=== PATIENT | female | born 1965 | race Caucasian/White ===

== ENCOUNTER 2016-05-11 18:55 | Emergency (ER) | payer OTHER ==
[~2016-05-11] VITALS: Ht 152.4 cm; Wt 79.0 kg
[2016-05-11 19:37] VITALS: Ht 152.4 cm; Wt 79.0 kg
--- NOTE | 2016-05-11 22:30 | ERA ---
ER Documentation Chief Complaint Date/Time DATE: 05/11/16 TIME: 22:30 Chief Complaint Left Facial pain and headache since yesterday. Frozen shoulder HPI The patient is a 50-year-old female, presenting to the ER because of left-sided headache, left facial pain, left upper extremity pain with movement for 1 day. She denies similar symptoms previously. She is unable to raise her left hand above her head because of the pain. She denies neck pain, chest pain, dyspnea, abdominal pain, vomiting, dysuria, diarrhea, constipation. She denies smoking or drinking Past medical history: Hypertension Past surgical history: None ROS All systems reviewed and are negative except as per history of present illness. Medications Home Meds Active Scripts Hydrocodone/Acetaminophen ([place] 10-325 Tablet) 1 Each Tablet, 1 TAB PO Q6H Y for PAIN, #7 TAB Prov:CESAR JAMISON MD 05/12/16 Ibuprofen* (Motrin*) 600 Mg Tab, 600 MG PO Q6H Y for PAIN AND OR ELEVATED TEMP, #30 TAB Prov:CESAR JAMISON MD 05/12/16 Allergies Allergies: Coded Allergies: No Known Drug Allergies (Verified Allergy, Unknown, 02/02/14) PMhx/Soc Hx Alcohol Use: No Hx Substance Use: No Hx Tobacco Use: No Physical Exam Vitals Vital Signs Date Time Temp Pulse Resp B/P Pulse Ox O2 Delivery O2 Flow Rate FiO2 05/12/16 01:41 70 19 197/82 100 Room Air 05/11/16 23:15 65 16 178/85 96 Room Air 05/11/16 19:37 98.9 74 18 227/98 98 Physical Exam Const: No acute distress. Head: Atraumatic. Eyes: Normal Conjunctiva. ENT: Normal External Ears, Nose and Mouth. Neck: Full range of motion. No meningismus. Resp: Clear to auscultation bilaterally. Cardio: Regular rate and rhythm, no murmurs. Abd: Soft, non distended, normal bowel sounds, non tender. Skin: No petechiae or rashes. Back: No midline or flank tenderness. Ext: No cyanosis, or edema. Vague and moderate left upper extremity tenderness, no crepitus, not warm to touch Neur: Awake and alert. No focal deficit Psych: Normal Mood and Affect. Result Diagram: 05/11/16 2302 05/11/16 2302 Results 24 hrs Laboratory Tests Test 05/11/16 23:02 White Blood Count 7.910^3/ul Red Blood Count 3.9510^6/ul Hemoglobin 11.5g/dl Hematocrit 35.9% Mean Corpuscular Volume 90.9fl Mean Corpuscular Hemoglobin 29.1pg Mean Corpuscular Hemoglobin Concent 32.0g/dl Red Cell Distribution Width 12.9% Platelet Count 11886^3/UL Mean Platelet Volume 11.3fl Neutrophils % 62.2% Lymphocytes % 28.7% Monocytes % 6.2% Eosinophils % 2.2% Basophils % 0.4% Nucleated Red Blood Cells % 0.0/100WBC Neutrophils # 4.910^3/ul Lymphocytes # 2.310^3/ul Monocytes # 0.510^3/ul Eosinophils # 0.210^3/ul Basophils # 0.010^3/ul Nucleated Red Blood Cells # 0.010^3/ul Prothrombin Time 13.0Sec Prothrombin Time Ratio 1.0 INR International Normalized Ratio 0.98 Activated Partial Thromboplast Time 29.9Sec Sodium Level 138mmol/L Potassium Level 4.0mmol/L Chloride Level 103mmol/L Carbon Dioxide Level 27mmol/L Anion Gap 12 Blood Urea Nitrogen 13mg/dl Creatinine 0.55mg/dl Glucose Level 108mg/dl Calcium Level 9.4mg/dl Troponin I < 0.012ng/ml Current Medications Medications (Trade) Dose Ordered Sig/Dmitry Route PRN Reason Start Time Stop Time Status Last Admin Dose Admin Morphine Sulfate (morphine) 4 mg ONCE STAT IV 05/11/16 22:44 05/11/16 22:50 DC 05/11/16 23:06 Ondansetron HCl (Zofran Inj) 4 mg ONCE STAT IV 05/11/16 22:44 05/11/16 22:50 DC 05/11/16 23:07 Procedures/[place] [address] Radiology Main Line: [phone] DIAGNOSTIC IMAGING REPORT Patient: TANMAY MONAHAN : 1965 Age: 50 Sex: F MR #: [id number] DOS: 05/11/16 2244 Ordering MD: CESAR JAMISON MD Location: E/R Room/Bed: PROCEDURE: XR Wrist. CLINICAL INDICATION: Pain. TECHNIQUE: Three views of the left wrist. COMPARISON: None available. FINDINGS: No fracture or dislocation is identified. The joint spaces are preserved. There is no significant soft tissue swelling. IMPRESSION: 1. No fracture or dislocation of the left wrist. RPTAT: HTAR .Danny Jalloh MD, MD Date Time Electronically viewed and signed by .Danny Jalloh MD, MD on 05/12/2016 00:56 .R/ CC: CESAR JAMISON MD [place] [address] Radiology Main Line: [phone] DIAGNOSTIC IMAGING REPORT Patient: TANMAY MONAHAN : 1965 Age: 50 Sex: F MR #: [id number] DOS: 05/11/16 2244 Ordering MD: CESAR JAMISON MD Location: E/R Room/Bed: PROCEDURE: XR Shoulder. CLINICAL INDICATION: Left shoulder pain. TECHNIQUE: Two views of the left shoulder. COMPARISON: None available. FINDINGS: There is no fracture or dislocation. The coracoclavicular interval is normal. The joint spaces are preserved. There is a 7 mm calcification adjacent to the lateral aspect of the humeral head. The visualized lung is clear. IMPRESSION: 1. 7 mm calcification adjacent to the lateral aspect of the humeral head, suspicious for calcific tendonitis of the rotator cuff. 2. No fracture or dislocation. RPTAT: HTAR .Danny Jalloh MD, Date Time Electronically viewed and signed by .Danny Jalloh MD, MD on 05/12/2016 00:53 .R/ CC: CESAR JAMISON MD [place] [address] Radiology Main Line: [phone] DIAGNOSTIC IMAGING REPORT Patient: TANMAY MOANHAN : 1965 Age: 50 Sex: F MR #: [id number] DOS: 05/11/164 Ordering MD: CESAR JAMISON MD Location: E/R Room/Bed: PROCEDURE: XR humerus. CLINICAL INDICATION: Pain. TECHNIQUE: AP and lateral views of the left humerus. COMPARISON: None available. FINDINGS: No fracture or dislocation is identified. There is a 5 mm calcification projecting lateral to the humeral head. The joint spaces are preserved. IMPRESSION: 1. No fracture or dislocation of the left humerus. 2. 5 mm calcification projecting lateral to the humeral head, suspicious for calcific tendonitis of the rotator cuff. RPTAT: HTAR .Danny Jalloh MD, MD Date Time Electronically viewed and signed by .Danny Jalloh MD, MD on 05/12/2016 00:55 .R/ CC: CESAR JAMISON MD [place] [address] Radiology Main Line: [phone] DIAGNOSTIC IMAGING REPORT Patient: TANMAY MONAHAN : 1965 Age: 50 Sex: F MR #: [id number] DOS: 05/11/16 2244 Ordering MD: CESAR JAMISON MD Location: E/R Room/Bed: PROCEDURE: XR Forearm. CLINICAL INDICATION: Pain. TECHNIQUE: AP and lateral views of the left forearm. COMPARISON: None available. FINDINGS: No fracture or dislocation is identified. The joint spaces are preserved. There is no significant soft tissue swelling. IMPRESSION: 1. No fracture or dislocation of the left forearm. RPTAT: HTAR .Danny Jalloh MD, MD Date Time Electronically viewed and signed by .Danny Jalloh MD, MD on 05/12/2016 00:55 .R/ CC: CESAR JAMISON MD [place] [address] Radiology Main Line: [phone] DIAGNOSTIC IMAGING REPORT Patient: TANMAY MONAHAN : 1965 Age: 50 Sex: F MR #: [id number] DOS: 05/11/164 Ordering MD: CESAR JAMISON MD Location: E/R Room/Bed: PROCEDURE: XR Elbow. CLINICAL INDICATION: Pain. TECHNIQUE: Three views of the left elbow. COMPARISON: None available. FINDINGS: The anterior fat pad is visible, but not elevated. The posterior fat pad is not seen. The anterior humeral and radiocapitellar lines are normal. No fracture or dislocation is identified. The joint spaces are preserved. There is no significant soft tissue swelling. IMPRESSION: 1. No fracture or dislocation of the left elbow. RPTAT: HTAR .Danny Jalloh MD, MD Date Time Electronically viewed and signed by .Danny Jalloh MD, MD on 05/12/2016 00:53 .R/ CC: CESAR JAMISON MD [place] [address] Radiology Main Line: [phone] DIAGNOSTIC IMAGING REPORT Patient: TANMAY MONAHAN : 1965 Age: 50 Sex: F MR #: [id number] DOS: 05/11/162243 Ordering MD: CESAR JAMISON MD Location: E/R Room/Bed: PROCEDURE: XR Chest. CLINICAL INDICATION: Shortness of breath. TECHNIQUE: Single frontal chest x-ray. COMPARISON: None. FINDINGS: The cardiomediastinal silhouette is unremarkable. There is no CHF.. No focal infiltrate is seen. There is no pleural effusion. There is no pneumothorax. The osseous structures are unremarkable. IMPRESSION: 1. No active disease. RPTAT: HMVK .Cesar Mackey MD, MD Date Time Electronically viewed and signed by .Cesar Mackey MD, MD on 05/12/2016 00:29 .K/ CC: CESAR JAMISON MD [place] [address] Radiology Main Line: [phone] DIAGNOSTIC IMAGING REPORT Patient: TANMAY MONAHAN : 1965 Age: 50 Sex: F MR #: [id number] DOS: 05/11/16 2244 Ordering MD: CESAR JAMISON MD Location: E/R Room/Bed: PROCEDURE: Noncontrast CT Head. CLINICAL INDICATION: Trauma. TECHNIQUE: Noncontrast CT of the head was obtained. The administered radiation dose was CTDI vol = 43 mGy, DLP = 720 mGy-cm. COMPARISON: No pertinent prior examinations were submitted for comparison. FINDINGS: The ventricles and sulci are within normal limits. There is no acute intracranial hemorrhage or extra-axial fluid collection. There is no mass effect. No midline shift is identified. There is no loss of mcclelland-white differentiation to suggest acute infarction. The orbits are within normal limits. The paranasal sinuses and mastoid air cells are without fluid. No destructive osseous lesion is identified. IMPRESSION: No acute findings. RPTAT: HIKT .Vega Calix MD, Date Time Electronically viewed and signed by .Vega Calix MD, on 05/11/2016 23:48 .T/ CC: CESAR JAMISON MD [place] [address] Radiology Main Line: [phone] DIAGNOSTIC IMAGING REPORT Patient: TANMAY MONAHAN : 1965 Age: 50 Sex: F MR #: [id number] DOS: 05/11/16 2244 Ordering MD: CESAR JAMISON MD Location: E/R Room/Bed: PROCEDURE: Noncontrast CT Head. CLINICAL INDICATION: Trauma. TECHNIQUE: Noncontrast CT of the head was obtained. The administered radiation dose was CTDI vol = 43 mGy, DLP = 720 mGy-cm. COMPARISON: No pertinent prior examinations were submitted for comparison. FINDINGS: The ventricles and sulci are within normal limits. There is no acute intracranial hemorrhage or extra-axial fluid collection. There is no mass effect. No midline shift is identified. There is no loss of mcclelland-white differentiation to suggest acute infarction. The orbits are within normal limits. The paranasal sinuses and mastoid air cells are without fluid. No destructive osseous lesion is identified. IMPRESSION: No acute findings. RPTAT: HIKT .Vega Calix MD, Date Time Electronically viewed and signed by .Vega Calix MD, on 05/11/2016 23:48 .T/ CC: CESAR JAMISON MD EKG: Read by emergency physician Rate/Rhythm: Normal Sinus Rhythm 63 beats/min QRS, ST, T-waves: No ST elevation, no T inversion Impression: Normal EKG MEDICAL MAKING DECISION: The patient is a 50-year-old female, presenting with acute left shoulder calcific tendinitis, acute accelerated hypertension. She was treated with morphine 4 mg IV 2 for pain, Zofran 4 mg IV 2 for nausea, labetalol 20 mg IV for acute associated hypertension with good response. The differential diagnoses considered include but are not limited to fracture, contusion, sprain, internal derangement Departure Diagnosis: Primary Impression: Calcific tendonitis of left shoulder Additional Impression: Anemia Condition: Good Comments She was discharged with a sling, Michael Alvarado and referred to see the addictions recovery specialist orthopedist Dr Lizarraga in 1-2 days, return if any concern CESAR JAMISON MD May 11, 2016 22:30
[2016-05-11] MEDS ORDERED: morphine 4 MG/ML VIAL IV STA (22:44)
[2016-05-11] MEDS ORDERED: ONDANSETRON 4 MG INJ IV STA (22:44)
[2016-05-11 23:12] LABS: ADD SCAN DIFF NO
[2016-05-11 23:15] LABS: BASOPHILS % 0.4 % (0.0-2.0); EOSINOPHILS # 0.2 10^3/ul (0.0-0.5); EOSINOPHILS % 2.2 % (0.0-7.0); HEMATOCRIT 35.9 % (37.0-47.0); HEMOGLOBIN 11.5 g/dl (12.0-16.0); LYMPHOCYTES # 2.3 10^3/ul (0.8-2.9); LYMPHOCYTES % 28.7 % (15.0-51.0); MEAN CORPUSCULAR HEMOGLOBIN 29.1 pg (29.0-33.0); MEAN CORPUSCULAR VOLUME 90.9 fl (82.0-101.0); MEAN PLATELET VOLUME 11.3 fl (7.4-10.4); MONOCYTE # 0.5 10^3/ul (0.3-0.9); MONOCYTES % 6.2 % (0.0-11.0); NEUTROPHIL # 4.9 10^3/ul (1.6-7.5); NEUTROPHILS % 62.2 % (39.0-77.0); PLATELET COUNT 221 10^3/UL (140-415); RED BLOOD COUNT 3.95 10^6/ul (4.20-5.40); RED CELL DISTRIBUTION WIDTH 12.9 % (11.5-14.5); WHITE BLOOD COUNT 7.9 10^3/ul (4.8-10.8)
[2016-05-11 23:25] LABS: INR 0.98
[2016-05-11 23:26] LABS: PARTIAL THROMBOPLASTIN TIME 29.9 Sec (25.0-35.0)
[2016-05-11 23:29] LABS: ANION GAP 12 (8-16); BLOOD UREA NITROGEN 13 mg/dl (7-20); CALCIUM 9.4 mg/dl (8.4-10.2); CARBON DIOXIDE 27 mmol/L (21-31); CHLORIDE 103 mmol/L (97-110); CREATININE 0.55 mg/dl (0.44-1.00); GLUCOSE 108 mg/dl (70-220); SODIUM 138 mmol/L (135-144)
--- NOTE | 2016-05-11 23:49 | RADRPT ---
PROCEDURE: Noncontrast CT Head. CLINICAL INDICATION: Trauma. TECHNIQUE: Noncontrast CT of the head was obtained. The administered radiation dose was CTDI vol = 43 mGy, DLP = 720 mGy-cm. COMPARISON: No pertinent prior examinations were submitted for comparison. FINDINGS: The ventricles and sulci are within normal limits. There is no acute intracranial hemorrhage or ext ra-axial fluid collection. There is no mass effect. No midline shift is identified. There is no loss of mcclelland-white differentiation to suggest acute infarction. The orbits are within normal limits. The paranasal sinuses and mastoid air cells are without fluid. No destructive osseous lesion is identified. IMPRESSION: No acute findings. RPTAT: HIKT .Vega Calix MD, MD Date Time Electronically viewed and signed by .Vega Calix MD, on 05/11/2016 23:48 .T/
--- NOTE | 2016-05-11 23:50 | RADRPT ---
PROCEDURE: CT Cervical Spine without contrast. CLINICAL INDICATION: Trauma TECHNIQUE: Noncontrast CT of the cervical spine was performed with axial images. Coronal and sagitta l images were also performed. The administered radiation dose was CTDI vol = 22.2 mGy, DLP = 448.4 mGy-cm. COMPARISON: There are no similar studies submitted for comparison. FINDINGS: There is some mild reversal of the normal cervical lordosis due to multilevel cervical spondylotic c hanges including some uncovertebral arthrosis and mild neural foraminal narrowing. Vertebral body stature and alignment are maintained. No acute fracture or subluxation is identified. The paravertebral and paraspinous soft tissues are unremarkable. IMPRESSION: No acute fracture or subluxation. RPTAT: HIKT .Vega Calix MD, Date Time Electronically viewed and signed by .Vega Calix MD, on 05/11/2016 23:49 .T/
[2016-05-11 23:54] LABS: TROPONIN-I < 0.012 ng/ml (0.00-0.12)
--- NOTE | 2016-05-12 00:29 | RADRPT ---
PROCEDURE: XR Chest. CLINICAL INDICATION: Shortness of breath. TECHNIQUE: Single frontal chest x-ray. COMPARISON: None. FINDINGS: The cardiomediastinal silhouette is unremarkable. There is no CHF.. No focal infiltrate is seen. T here is no pleural effusion. There is no pneumothorax. The osseous structures are unremarkable. IMPRESSION: 1. No active disease. RPTAT: HMVK .Cesar Mackey MD, Date Time Electronically viewed and signed by .Cesar Mackey MD, on 05/12/2016 00:29 .K/
--- NOTE | 2016-05-12 00:54 | RADRPT ---
PROCEDURE: XR Shoulder. CLINICAL INDICATION: Left shoulder pain. TECHNIQUE: Two views of the left shoulder. COMPARISON: None available. FINDINGS: There is no fracture or dislocation. The coracoclavicular interval is normal. The joint spaces are preserved. There is a 7 mm calcification adjacent to the lateral aspect of the humeral head. The visualized lung is clear. IMPRESSION: 1. 7 mm calcification adjacent to the lateral aspect of the humeral head, suspicious for calcific t endonitis of the rotator cuff. 2. No fracture or dislocation. RPTAT: HTAR .Danny Jalloh MD, Date Time Electronically viewed and signed by .Danny Jalloh MD, MD on 05/12/2016 00:53 .R/
--- NOTE | 2016-05-12 00:54 | RADRPT ---
PROCEDURE: XR Elbow. CLINICAL INDICATION: Pain. TECHNIQUE: Three views of the left elbow. COMPARISON: None available. FINDINGS: The anterior fat pad is visible, but not elevated. The posterior fat pad is not seen. The anterior humeral and radiocapitellar lines are normal. No fracture or dislocation is identified. The joint spaces are preserved. There is no significant soft tissue swelling. IMPRESSION: 1. No fracture or dislocation of the left elbow. RPTAT: HTAR .Danny Jalloh MD, Date Time Electronically viewed and signed by .Danny Jalloh MD, MD on 05/12/2016 00:53 .R/
--- NOTE | 2016-05-12 00:55 | RADRPT ---
PROCEDURE: XR humerus. CLINICAL INDICATION: Pain. TECHNIQUE: AP and lateral views of the left humerus. COMPARISON: None available. FINDINGS: No fracture or dislocation is identified. There is a 5 mm calcification projecting lateral to the hu meral head. The joint spaces are preserved. IMPRESSION: 1. No fracture or dislocation of the left humerus. 2. 5 mm calcification projecting lateral to the humeral head, suspicious for calcific tendonitis of the rotator cuff. RPTAT: HTAR .Danny Jalloh MD, Date Time Electronically viewed and signed by .Danny Jalloh MD, MD on 05/12/2016 00:55 .R/
--- NOTE | 2016-05-12 00:55 | RADRPT ---
PROCEDURE: XR Forearm. CLINICAL INDICATION: Pain. TECHNIQUE: AP and lateral views of the left forearm. COMPARISON: None available. FINDINGS: No fracture or dislocation is identified. The joint spaces are preserved. There is no significant soft tissue swelling. IMPRESSION: 1. No fracture or dislocation of the left forearm. RPTAT: HTAR .Danny Jalloh MD, MD Date Time Electronically viewed and signed by .Danny Jalloh MD, on 05/12/2016 00:55 .R/
--- NOTE | 2016-05-12 00:56 | RADRPT ---
PROCEDURE: XR Wrist. CLINICAL INDICATION: Pain. TECHNIQUE: Three views of the left wrist. COMPARISON: None available. FINDINGS: No fracture or dislocation is identified. The joint spaces are preserved. There is no significant soft tissue swelling. IMPRESSION: 1. No fracture or dislocation of the left wrist. RPTAT: HTAR .Danny Jalloh MD, MD Date Time Electronically viewed and signed by .Danny Jalloh MD, on 05/12/2016 00:56 .R/
[2016-05-12] MEDS ORDERED: IBUP-1542 PO (01:37)
[2016-05-12] MEDS ORDERED: HYDR-902 PO (01:40)
[2016-05-12] MEDS ORDERED: ONDANSETRON 4 MG INJ IV ONE (01:46)
[2016-05-12] MEDS ORDERED: morphine 4 MG/ML VIAL IV ONE (01:46)
[2016-05-12] MEDS ORDERED: LABETALOL HCL 20MG INJ IV ONE (02:00)
[2016-05-12 02:15] VITALS: BP 160/80; PULSE 60; RESP 16
== END 2016-05-12 02:20 | disposition home or self-care (01) ==
LOC: E/R 18:55
DX: M75.32 Calcific tendinitis of left shoulder (principal); D64.9 Anemia, unspecified; I10 Essential (primary) hypertension; R06.02 Shortness of breath
CPT/HCPCS: 36415; 70450; 71010; 72125; 73030; 73060; 73080; 73090; 73110; 80048; 84484; 85025; 85610; 85730; 93005; 96374; 96375; 96376; J2270; J2405; Z7502; Z7610